=== PATIENT | female | born 1995 | race Hispanic/Latino ===

== ENCOUNTER 2016-12-30 00:29 | Emergency (ER) | payer OTHER ==
[2016-12-30 00:37] VITALS: BMI 16.5
[2016-12-30 00:45] VITALS: TEMP 98.3
--- NOTE | 2016-12-30 01:09 | ED PDOC ---
Arrival/HPI - General Chief Complaint: Chest Pain Time Seen by Provider: 12/30/16 00:38 Historian: Patient - History of Present Illness Narrative History of Present Illness (Text): 12/30/16 01:002 A 21 year old female, whose past medical history includes anxiety and migraines , presents to the emergency department complaining of odd sensation to "brain". Patient reports feeling odd with "brain", experiencing warmth to right side of head. Patient later began experiencing chest pressure and had 1 episode of vomiting due to nausea. Currently feeling anxious. Patient denies any headache or any other complaints at this time. Past Medical History - Provider Review Nursing Documentation Reviewed: Yes - Cardiac Hx Cardiac Disorders: No - Pulmonary Hx Asthma: Yes - Neurological Hx Migraine: Yes - HEENT Hx HEENT Disorder: No - Renal Hx Renal Disorder: No - Endocrine/Metabolic Hx Endocrine Disorders: No - Hematological/Oncological Hx Blood Disorders: No - Integumentary Hx Dermatological Disorder: No - Musculoskeletal/Rheumatological Hx Musculoskeletal Disorders: No - Gastrointestinal Hx Gastrointestinal Disorders: No - Genitourinary/Gynecological Hx Genitourinary Disorders: No - Psychiatric Hx Anxiety: Yes Hx Substance Use: No - Anesthesia Hx Anesthesia: Yes Family/Social History - Physician Review Nursing Documentation Reviewed: Yes Family/Social History: No Known Family HX Smoking Status: Never Smoked Hx Alcohol Use: Yes Hx Substance Use: No Allergies/Home Meds Allergies/Adverse Reactions: Allergies diphenhydramine [From Benadryl] Allergy (Verified 12/30/16 00:38) SHORTNESS OF BREATH Home Medications: Home Meds Medication Instructions Recorded Confirmed No Known Home Med [No Known Home 04/04/14 12/30/16 Med] Review of Systems - Physician Review All systems were reviewed & negative as marked: Yes - Review of Systems Constitutional: Other (experiencing odd sensation to "brain", right side warmth of head) Cardiovascular: Chest Pain (chest pressure) Gastrointestinal: Nausea, Vomiting (1 episode of vomiting due to nausea) Neurological: absent: Headache Psychiatric: Anxiety Physical Exam Vital Signs Reviewed: Yes Vital Signs Temp Pulse Pulse Resp BP Pulse Ox 12/30/16 02:58 75 20 96 12/30/16 00:43 98.3 F 126 H 23 139/79 100 12/30/16 00:30 115 H Mental Status: Positive for: other (hyperventilating, tearful, and emotional) Medical Decision Making ED Course and Treatment: 12/30/16 01:06 Impression: 21 year old female with feeling "brain" warmth to right side of head , later followed by chest pain. Physical exam shows patient is hyperventilating , tearful, and emotional. Plan: -- EKG -- Head CT -- urine HCG -- Ativan -- Reassess and disposition Progress Notes: EKG: Ordered, reviewed, and independently interpreted the EKG. Rate : 97 BPM Rhythm : NSR Interpretation : No ST-segment elevations or depressions, no T-wave inversions, normal intervals. Comparison : No previous EKG for comparison. 12/30/2016 03:[address] IMPRESSION: No acute intracranial hemorrhage, or suspicious effect. Dictator: Ana Shukla MD 12/30/16 05:31 Reassessment Condition: Re-examined, Improved - Lab Interpretations Lab Results: Lab Results 12/30/16 01:02: Urine HCG, Qual Negative - RAD Interpretation Radiology Orders: 12/30/16 01:01 HEAD W/O CONTRAST [CT] Stat - Medication Orders Current Medication Orders: Discontinued Medications Lorazepam (Ativan) 1 mg PO ONCE ONE PRN Reason: Protocol Stop: 12/30/16 01:03 Last Admin: 12/30/16 01:49 Dose: 1 mg Ondansetron HCl (Zofran Odt) 4 mg PO STAT STA Stop: 12/30/16 01:16 Last Admin: 12/30/16 01:38 Dose: 4 mg Ondansetron HCl (Zofran Odt) 4 mg PO STAT STA Stop: 12/30/16 02:53 Last Admin: 12/30/16 03:00 Dose: Not Given Non-Admin Reason: Patient Refused - Scribe Statement The provider has reviewed the documentation as recorded by the Lois Vera Provider Scribe Attestation: All medical record entries made by the Brunoibjossy were at my direction and personally dictated by me. I have reviewed the chart and agree that the record accurately reflects my personal performance of the history, physical exam, medical decision making, and the department course for this patient. I have also personally directed, reviewed, and agree with the discharge instructions and disposition. Disposition/Present on Arrival - Present on Arrival Any Indicators Present on Arrival: No History of DVT/PE: No History of Uncontrolled Diabetes: No Urinary Catheter: No History of Decub. Ulcer: No History Surgical Site Infection Following: None - Disposition Have Diagnosis and Disposition been Completed?: Yes Diagnosis: Anxiety, Head and face pain Disposition: HOME/ ROUTINE Disposition Time: 04:30 Patient Plan: Discharge Condition: IMPROVED Discharge Instructions (ExitCare): Generalized Anxiety Disorder (ED) Referrals: PCP,NO [Primary Care Provider] - Follow up with primary Forms: [employer] ([place])
--- NOTE | 2016-12-30 03:52 | CT ---
EXAM: CT Head Without Intravenous Contrast CLINICAL HISTORY: 21 years old, female; Pain; Headache; Additional info: Atypical headache left sided tingling TECHNIQUE: Axial computed tomography images of the head/brain without intravenous contrast. All CT scans at this facility use one or more dose reduction techniques, viz.: automated exposure control; ma/kV adjustment per patient size (including targeted exams where dose is matched to indication; i.e. head); or iterative reconstruction technique. COMPARISON: No relevant prior studies available. FINDINGS: Brain: No acute intracranial hemorrhage. No significant white matter disease. No edema. Ventricles: No significant ventriculomegaly. Bones: No acute displaced fracture. Sinuses: Unremarkable as visualized. No acute sinusitis. Mastoid air cells: Unremarkable as visualized. No mastoid effusion. IMPRESSION: No acute intracranial hemorrhage, or suspicious mass effect.
[2016-12-30 06:17] VITALS: BP 135/74; PULSE 80; RESP 18; O2SAT 97
--- NOTE | 2016-12-30 23:19 | CARD ---
APPROVED REPORT EKG Measurement Heart [id number] <Conclusion> Normal sinus rhythm Normal ECG
== END 2016-12-30 04:10 | disposition home or self-care (01) ==
LOC: ED 00:29
DX: R51 Headache (principal); F41.1 Generalized anxiety disorder